=== PATIENT | female | born 1950 | race African-American/Black ===

== ENCOUNTER 2017-11-28 08:00 | Inpatient (IN) | payer OTHER, BC ==
[2017-11-21 10:00] VITALS: BMI 38.7
[2017-11-28] MEDS ORDERED: DEXAMETHASONE SOD PHOSPHATE/PF 10 MG/ML SDV ONE (11:00)
[2017-11-28] MEDS ORDERED: MIDAZOLAM HCL 2 MG/2 ML SINGLE DOSE VIAL ONE ×3 (11:01→13:02)
[2017-11-28] MEDS ORDERED: BUPIVACAINE HCL/PF (5 MG/ML) 30 ML VIAL IJ ONE (11:01)
[2017-11-28] MEDS ORDERED: BUPIVACAINE LIPOSOME/PF (EXPAREL) 266 MG/20 ML VIAL ONE (11:01)
[2017-11-28] MEDS ORDERED: CEFAZOLIN 2 GM/D5W 2 GM/50 ML ML IVPB ONE (11:50)
[2017-11-28] MEDS ORDERED: VANCOMYCIN 1 GRAM (PRE-DOCKED) 1,000 MG/250 ML BAG IVPB ONE (11:50)
--- NOTE | 2017-11-28 11:50 | HP ---
History & Physical Update - History History: No Change - Physical Physical: No Change - Assessment Assessment: No Change - Plan Plan: No Change (full H&P from PMD on 11/13/2017)
[2017-11-28] MEDS ORDERED: TRANEXAMIC ACID 1000 MG/10 ML VIAL IVPUSH ONE (11:51)
[2017-11-28] MEDS ORDERED: TRANEXAMIC ACID 1000 MG/10 ML VIAL ONE (12:55)
[2017-11-28] MEDS ORDERED: VANCOMYCIN 1,000 MG VIAL (RESTRICTED TO ID ONLY) ONE (12:55)
[2017-11-28] MEDS ORDERED: ceFAZolin SODIUM 1 GM VIAL ONE (12:55)
[2017-11-28] MEDS ORDERED: PROPOFOL 20 ML ONE ×2 (13:02→14:39)
[2017-11-28] MEDS ORDERED: ONDANSETRON 4 MG/2 ML VIAL IVPUSH PRN ×2 (14:46→15:12)
[2017-11-28] MEDS ORDERED: MAG HYDROX/AL HYDROX/SIMETH 30 ML UNIT-DOSE CUP PO PRN (15:12)
[2017-11-28] MEDS ORDERED: MAGNESIUM HYDROX 2400MG/30ML ORAL SUSPENSION 30 ML CUP PO PRN (15:12)
[2017-11-28] MEDS ORDERED: LACTATED RINGERS SOLUTION 1,000 ML IV SCH (15:15)
--- NOTE | 2017-11-28 15:21 | OP ---
Operative Note - Note: Operative Date: 11/28/17 Pre-Operative Diagnosis: Left knee DJD Operation: Left total knee replacement Implants: [employer]. Cemented. Femur - 5. Tibia - 6. Poly - 9mm, PS. Patella - 27mm Surgeon: Eliel Perrin Bundle Helper: Bienvenido Perrin Anesthesiologist/CONSTRUCTION OR LEAK GANG LABORER: Jamal Kowaslki Anesthesia: Spinal Specimens Removed: Bone, soft tissue Estimated Blood Loss (mls): 100 Drains & Tubes with Location: 1 x deep HemoVac Operative Report Dictated: Yes
[2017-11-28] MEDS ORDERED: BENZOIN/ALOE VERA/STORAX/TOLU 58 ML BOTTLE ONE (15:23)
--- NOTE | 2017-11-28 15:23 | PN ---
Progress Note (short form) - Note Progress Note: 67F s/p L TKA POD #0. -Pain control: per anaesthesia team. -DVT PPx: - Chemical: ASA 81mg PO BID x 6 weeks. - Mechanical: TYESHA's, SCD's. -Incentive spirometry. -PT/OT/Rehab, OOB. -WBAT LLE. -f/u post-op TOV. -f/u drain output. -f/u AM labs. -Discharge planning. -Care per medical hospitalist team. -Will follow. Eliel Perrin MD (Orthopaedic Surgery).
--- NOTE | 2017-11-28 16:16 | OP ---
DATE OF OPERATION: 11/28/2017 SURGEON: Eliel Perrin MD DIRECTOR OF OPTIMIZATION: Bienvenido Perrin MD PREOPERATIVE DIAGNOSIS: Tricompartment osteoarthritis, left knee. POSTOPERATIVE DIAGNOSIS: Tricompartment osteoarthritis, left knee. OPERATION PERFORMED: Left posterior stabilized total knee arthroplasty, cemented (Collison), subvastus approach. ANESTHESIA: Spinal anesthesia with conscious sedation and peripheral block. ANTIBIOTICS GIVEN: 2 g Kefzol, 1 g vancomycin preop and 1 g Kefzol given at the time of the release of the tourniquet. TOURNIQUET TIME: Approximately 90 minutes. PROCEDURE: The patient was correctly identified and brought to the operating room. The left lower extremity was prepped and free draped in a routine manner with Betadine scrub, wiped off with alcohol and DuraPrep applied. A free drape to the left lower extremity performed. A midline incision was utilized. The dissection was taken through the subcutaneous tissue to the prepatellar region. The plane on the medial side was lifted. A medial incision was made into the proximal tibial bone bed right up to the angle of the attachment point of vastus medialis into the retinacular tissue to the medial pole of the patella. The epimysium was removed off the muscle completely so that the actual exposure of the vastus medialis was subfascial. This dissection was taken down posteriorly right to the linea aspera. Following this, the interval between the vastus medialis and the medial parapatellar region was opened. This gave easy entry for a blunt Hohmann under the vastus lateralis to slide the patella laterally. Once this had been performed, the patella was capsized as best we could. The plane of subcutaneous bed just alongside the more medial bone bed of the femur was opened. This enabled the complete freeing of the vastus and complete retraction laterally, that is of the quadriceps mechanism. The patella was cut with the patella at 90 degrees to the coronal plane. The cut was made from medial to lateral and in line with Whitesides line that is from patella ligament to quadriceps tendon. Once this had been performed, the tibia was exposed, sharp Hohmann placed laterally, 1+ posteriorly and 1+ medially. An extramedullary jig alignment cut from the eminence of the tibia right to the middle of the talus along the iliac crest. Once this being performed, the measurement of the tibia was for a size 6 and an appropriate hole was made in the tibia including the fine cuttings performed at that point. Once this had been achieved, the femur was cut in 3 degrees of external rotation, 4 degrees of valgus; 10 mm of the distal end of the femur was resected. The cuts were made with the approximately jig system. Once this being completed, the femoral cuts were well maintained and normal appearing. The trial components were inserted. This was a size 5 femur, size 6 tibial tray, size large polyethylene patellar button, 9 polyethylene liner with a 27 mm patellar button being utilized. Routine lug holes were made for the patella itself. Tracking was excellent. Realignment of the limb was perfect and external rotation was normal. Once this had been satisfied, the tissues were thoroughly lavaged with pulse lavage and cementing using one-stage tibia, femur and then patella. All extraneous cement was removed. Patella tracking was normal with a 9 mm trial polyethylene liner and then the definitive prosthesis and implant inserted with no difficulty. The polyethylene measured a size 9 for posterior stabilized implant. The wounds were thoroughly lavaged. The tourniquet was released. Antibiotics were given at the time of release. This allowed us to diathermize some of the bleeding vessels, but posteriorly there was still moderately significant bleeding occurring which was unstoppable, and for that reason we placed a drain and closed the tissues as follows: Quadriceps muscle and fascia 1 Vicryl, subcuticular 2-0 Vicryl, skin 3-0 Monocryl with Steri-Strips. DRAINS: 1/8 inch Hemovac x1. No complications. The operation went well. MD TIFFANIE Live/[id number]
[2017-11-28] MEDS ORDERED: ACETAMINOPHEN 325 MG TABLET (FP) ONE (17:01)
[2017-11-28] MEDS ORDERED: ONDANSETRON 4 MG/2 ML VIAL ONE (17:01)
[2017-11-28] MEDS ORDERED: oxyCODONE HCL 5 MG TABLET ONE (17:22)
[2017-11-28] MEDS ORDERED: oxyCODONE HCL 5 MG TABLET PO ONE (17:30)
[2017-11-28] MEDS ORDERED: KETOROLAC TROMETHAMINE 30 MG/1 ML VIAL IVPUSH ONE (18:05)
[2017-11-28] MEDS ORDERED: KETOROLAC TROMETHAMINE 30 MG/1 ML VIAL ONE (18:09)
[2017-11-28] MEDS: ASPIRIN 81 MG CHEWABLE TABLETS PO SCH (22:46)
[2017-11-28] MEDS: ACETAMINOPHEN 325 MG TABLET (FP) PO SCH (22:46)
[2017-11-28] MEDS: CARVEDILOL 12.5 MG TABLET (FP) PO SCH (22:46)
[2017-11-28] MEDS: oxyCODONE HCL 10 MG SUSTAINED ACTING TABLET PO SCH (22:46)
[2017-11-28] MEDS: SENNOSIDES/DOCUSATE COMBO (SENNA PLUS) TABLET (UD) PO SCH (22:47)
[2017-11-28] MEDS: CEFAZOLIN 2 GM/D5W 2 GM/50 ML ML IVPB SCH (22:47)
[2017-11-28] MEDS: oxyCODONE HCL 5 MG TABLET PO PRN (22:54)
[2017-11-29] MEDS ORDERED: VANCOMYCIN 1 GRAM (PRE-DOCKED) 1,000 MG/250 ML BAG IVPB ONE (01:00)
[2017-11-29] MEDS: CEFAZOLIN 2 GM/D5W 2 GM/50 ML ML IVPB SCH (03:17)
[2017-11-29] MEDS: ACETAMINOPHEN 325 MG TABLET (FP) PO SCH ×5 (03:18→20:52)
[2017-11-29] MEDS: oxyCODONE HCL 5 MG TABLET PO PRN ×4 (06:59→20:52)
[2017-11-29 08:22] LABS: HEMATOCRIT 27.5 % (32.4-45.2); HEMOGLOBIN 8.5 GM/dl (10.7-15.3); MCH 25.4 pg (25.7-33.7); MEAN CELL VOLUME 81.9 fl (80-96); MEAN PLT VOLUME 7.7 fl (7.5-11.1); PLATELET COUNT 291 K/MM3 (134-434); RBC 3.35 M/mm3 (3.60-5.2); RDW 14.9 % (11.6-15.6)
[2017-11-29 08:35] LABS: ANION GAP 5 (8-16); BLOOD UREA NITROGEN 21 mg/dl (7-18); CALCIUM 8.6 mg/dl (8.4-10.2); CHLORIDE 103 mmol/L (98-107); CO2 28 mmol/L (22-28); CREATININE 1.2 mg/dl (0.6-1.3); GLUCOSE,RANDOM 109 mg/dl (74-106); POTASSIUM 4.3 mmol/L (3.5-5.1); SODIUM 136 mmol/L (136-145)
[2017-11-29] MEDS: HYDROCHLOROTHIAZIDE 25 MG TABLET (FP) PO SCH (10:26)
[2017-11-29] MEDS: CARVEDILOL 12.5 MG TABLET (FP) PO SCH ×2 (10:27→21:20)
[2017-11-29] MEDS: ASPIRIN 81 MG CHEWABLE TABLETS PO SCH ×2 (10:27→21:20)
[2017-11-29] MEDS: oxyCODONE HCL 10 MG SUSTAINED ACTING TABLET PO SCH ×2 (10:28→21:20)
[2017-11-29] MEDS: SENNOSIDES/DOCUSATE COMBO (SENNA PLUS) TABLET (UD) PO SCH ×2 (10:28→21:20)
[2017-11-29] MEDS: PANTOPRAZOLE 40 MG TABLET (FP) PO SCH (10:28)
--- NOTE | 2017-11-29 10:47 | PN ---
Progress Note (short form) - Note Progress Note: 67F POD1 L TKR under spinal with peripheral blocks for post operative pain relief. Pt states that pain is well controlled, reports no anesthetic complications. AVSS. Motor and sensory function intact in bilateral lower extremities. Continue current regimen.
--- NOTE | 2017-11-29 12:44 | CONSULT ---
Consultation: REQUESTING PROVIDER: Dr villarreal CONSULT REQUEST: We have been asked to medically evaluate this patient for medical management. HISTORY OF PRESENT ILLNESS: Patient is a 67 y/o female with a past medical history of OA, HTN, obesity. Patient is s/p left total knee replacement, Dr Villarreal Post op day 1. REVIEW OF SYSTEMS: CONSTITUTIONAL: Absent: fever, chills, diaphoresis, generalized weakness, malaise, loss of appetite, weight change HEENT: Absent: rhinorrhea, nasal congestion, throat pain, throat swelling, difficulty swallowing, mouth swelling, ear pain, eye pain, visual changes CARDIOVASCULAR: Absent: chest pain, syncope, palpitations, irregular heart rate, lightheadedness , peripheral edema RESPIRATORY: Absent: cough, shortness of breath, dyspnea with exertion, orthopnea, wheezing, stridor, hemoptysis GASTROINTESTINAL: Absent: abdominal pain, abdominal distension, nausea, vomiting, diarrhea, constipation, melena, hematochezia GENITOURINARY: Absent: dysuria, frequency, urgency, hesitancy, hematuria, flank pain, genital pain MUSCULOSKELETAL: Present: left knee Absent: myalgia, arthralgia, joint swelling, back pain, neck pain SKIN: Absent: rash, itching, pallor HEMATOLOGIC/IMMUNOLOGIC: Absent: easy bleeding, easy bruising, lymphadenopathy, frequent infections ENDOCRINE: Absent: unexplained weight gain, unexplained weight loss, heat intolerance, cold intolerance NEUROLOGIC: Absent: headache, focal weakness or paresthesias, dizziness, unsteady gait, seizure, mental status changes, bladder or bowel incontinence PSYCHIATRIC: Absent: anxiety, depression, suicidal or homicidal ideation, hallucinations. PHYSICAL EXAMINATION Vital Signs - 24 hr 11/28/17 11/28/17 11/28/17 16:07 16:12 16:17 Temperature 98.1 F Pulse Rate 78 57 L 58 L Respiratory 16 16 16 Rate Blood Pressure 131/54 156/61 152/66 O2 Sat by Pulse 99 100 100 Oximetry (%) 11/28/17 11/28/17 11/28/17 16:22 16:36 16:45 Temperature Pulse Rate 62 54 L 56 L Respiratory 16 16 16 Rate Blood Pressure 143/73 139/80 156/75 O2 Sat by Pulse 100 100 100 Oximetry (%) 11/28/17 11/28/17 11/28/17 17:00 17:15 17:30 Temperature Pulse Rate 60 64 64 Respiratory 16 16 16 Rate Blood Pressure 156/75 173/86 196/97 O2 Sat by Pulse 100 100 100 Oximetry (%) 11/28/17 11/28/17 11/28/17 17:45 18:00 18:10 Temperature Pulse Rate 66 61 64 Respiratory 18 18 18 Rate Blood Pressure 194/94 190/88 148/93 O2 Sat by Pulse 100 100 100 Oximetry (%) 11/28/17 11/28/17 11/28/17 18:20 18:30 19:00 Temperature 98.1 F 98.8 F Pulse Rate 60 64 62 Respiratory 18 18 18 Rate Blood Pressure 162/91 140/88 179/73 O2 Sat by Pulse 100 100 99 Oximetry (%) 11/28/17 11/29/17 11/29/17 22:40 06:00 10:05 Temperature 98.5 F 99.1 F 97.8 F Pulse Rate 70 72 70 Respiratory 19 20 18 Rate Blood Pressure 160/73 124/63 138/78 O2 Sat by Pulse 98 100 Oximetry (%) GENERAL: Awake, alert, and fully oriented, in no acute distress. HEAD: Normal with no signs of trauma. EYES: Pupils equal, round and reactive to light, extraocular movements intact, sclera anicteric, conjunctiva clear. No lid lag. EARS, NOSE, THROAT: Ears normal, nares patent, oropharynx clear without exudates. Moist mucous membranes. NECK: Normal range of motion, supple without lymphadenopathy, JVD, or masses. LUNGS: Breath sounds equal, clear to auscultation bilaterally. No wheezes, and no crackles. No accessory muscle use. HEART: Regular rate and rhythm, normal S1 and S2 without murmur, rub or gallop. ABDOMEN: Soft, nontender, not distended, normoactive bowel sounds, no guarding, no rebound, no masses. No hepatomegaly or splenomegaly. MUSCULOSKELETAL: Normal range of motion at all joints. No bony deformities or tenderness. No CVA tenderness. UPPER EXTREMITIES: 2+ pulses, warm, well-perfused. No cyanosis. No clubbing. Cap refill <2 seconds. No peripheral edema. LOWER EXTREMITIES: 2+ pulses, warm, well-perfused. No calf tenderness. No peripheral edema, scd, jair, hemovac scant sangenous drainage noted NEUROLOGICAL: Cranial nerves II-XII intact. Normal speech. Normal gait. PSYCHIATRIC: Cooperative. Good eye contact. Appropriate mood and affect. SKIN: Warm, dry, normal turgor, no rashes or lesions noted. Laboratory Results - last 24 hr 11/29/17 11/29/17 07:47 07:47 WBC 12.0 H RBC 3.35 L Hgb 8.5 L Hct 27.5 L MCV 81.9 MCH 25.4 L MCHC 31.0 L RDW 14.9 Plt Count 291 MPV 7.7 Sodium 136 Potassium 4.3 Chloride 103 Carbon Dioxide 28 Anion Gap 5 L BUN 21 H Creatinine 1.2 Random Glucose 109 H Calcium 8.6 Active Medications Generic Name Dose Route Start Last Admin Trade Name Freq PRN Reason Stop Dose Admin Acetaminophen 650 mg 11/28/17 15:00 11/29/17 09:13 Tylenol - PO 12/01/17 14:59 650 mg Q6H SASHA Administration Al Hydroxide/Mg Hydroxide 30 ml 11/28/17 15:12 Mylanta Oral Suspension - PO Q4H PRN DYSPEPSIA Aspirin 81 mg 11/28/17 22:00 11/29/17 10:27 Asa - PO 81 mg BID SASHA Administration Carvedilol 12.5 mg 11/28/17 22:00 11/29/17 10:27 Coreg - PO 12.5 mg BID SASHA Administration Hydrochlorothiazide 25 mg 11/29/17 10:00 11/29/17 10:26 Hctz - PO 25 mg DAILY SASHA Administration Lactated Ringer's 1,000 mls @ 125 mls/hr 11/28/17 15:00 Lactated Ringers Solution IV ASDIR SASHA Magnesium Hydroxide 30 ml 11/28/17 15:12 Milk Of Magnesia - PO PRN PRN CONSTIPATION Ondansetron HCl 4 mg 11/28/17 15:12 Zofran Injection IVPUSH Q6H PRN NAUSEA Oxycodone HCl 5 mg 11/28/17 14:46 Roxicodone - PO Q3H PRN PAIN LEVEL 1-5 Oxycodone HCl 10 mg 11/28/17 14:46 11/29/17 06:59 Roxicodone - PO 10 mg Q3H PRN Administration PAIN LEVEL 6-10 Oxycodone HCl 10 mg 11/28/17 22:00 11/29/17 10:28 Oxycontin - PO 12/01/17 14:47 10 mg BID SASHA Administration Pantoprazole Sodium 40 mg 11/29/17 10:00 11/29/17 10:28 Protonix - PO 40 mg DAILY SASHA Administration Senna/Docusate Sodium 1 tablet 11/28/17 22:00 11/29/17 10:28 Pericolace - PO 1 tablet BID SASHA Administration ASSESSMENT/PLAN: 1) MS left total knee replacement POD #1 - prn pain medication - physical therapy as per orthopedist - hgb 8.5, may be dilutional close monitoring of I/O from hemovac, repeat hgb in AM 2) cardiovascular hypertension - continue coreg and hctz, b/p at goal Dispo: We will continue to follow the patient. Thank you for this consultative opportunity. Visit type - Emergency Visit Emergency Visit: No - New Patient This patient is new to me today: Yes Date on this admission: 11/29/17 - Critical Care Critical Care patient: No
[2017-11-29] MEDS: LACTATED RINGERS SOLUTION 1,000 ML IV SCH (19:25)
[2017-11-30] MEDS: ACETAMINOPHEN 325 MG TABLET (FP) PO SCH ×5 (04:53→21:29)
[2017-11-30] MEDS: oxyCODONE HCL 5 MG TABLET PO PRN ×3 (05:05→18:07)
[2017-11-30 08:33] LABS: HEMATOCRIT 22.7 % (32.4-45.2); HEMOGLOBIN 7.5 GM/dl (10.7-15.3); MCH 26.8 pg (25.7-33.7); MCHC 32.9 g/dl (32.0-36.0); MEAN CELL VOLUME 81.3 fl (80-96); MEAN PLT VOLUME 7.8 fl (7.5-11.1); PLATELET COUNT 214 K/MM3 (134-434); RDW 14.6 % (11.6-15.6); WHITE BLOOD COUNT 12.9 K/mm3 (4.0-10.8)
[2017-11-30] MEDS: CARVEDILOL 12.5 MG TABLET (FP) PO SCH ×2 (10:04→21:29)
[2017-11-30] MEDS: ASPIRIN 81 MG CHEWABLE TABLETS PO SCH ×2 (10:04→21:28)
[2017-11-30] MEDS: HYDROCHLOROTHIAZIDE 25 MG TABLET (FP) PO SCH (10:05)
[2017-11-30] MEDS: PANTOPRAZOLE 40 MG TABLET (FP) PO SCH (10:05)
[2017-11-30] MEDS: oxyCODONE HCL 10 MG SUSTAINED ACTING TABLET PO SCH ×2 (10:05→21:28)
[2017-11-30] MEDS: SENNOSIDES/DOCUSATE COMBO (SENNA PLUS) TABLET (UD) PO SCH ×2 (10:06→21:28)
--- NOTE | 2017-11-30 14:36 | PN ---
Physical Exam: SUBJECTIVE: Patient seen and examined, reports feeling well, sitting in a bedside chair, reports minimal pain to left lower extremity, denies any paresthesia to the extremity. OBJECTIVE: Patient is a 67 y/o female with a past medical history of OA, iron deficiency anemia, HTN, obesity. patient is s/p left TKR, Dr Perrin Vital Signs Period Temp Pulse Resp BP Sys/Armstrong Pulse Ox Last 24 Hr 98.9 F-100.0 F 77-96 19-20 118-148/48-66 94-96 GENERAL: The patient is awake, alert, and fully oriented, in no acute distress. HEAD: Normal with no signs of trauma. EYES: PERRL, extraocular movements intact, sclera anicteric, conjunctiva clear. No ptosis. ENT: Ears normal, nares patent, oropharynx clear without exudates, moist mucous membranes. NECK: Trachea midline, full range of motion, supple. LUNGS: Breath sounds equal, clear to auscultation bilaterally, no wheezes, no crackles, no accessory muscle use. HEART: Regular rate and rhythm, S1, S2 without murmur, rub or gallop. ABDOMEN: Soft, nontender, nondistended, normoactive bowel sounds, no guarding, no rebound, no hepatosplenomegaly, no masses. EXTREMITIES: 2+ pulses, warm, well-perfused, no edema. LEFT LOWER EXTREMITY: hemovac removed, scant sang drainage noted, drain is intact, less than second capillary refill, +3 pedal pulse NEUROLOGICAL: Cranial nerves II through XII grossly intact. Normal speech, gait not observed. PSYCH: Normal mood, normal affect. SKIN: Warm, dry, normal turgor, no rashes or lesions noted Laboratory Results - last 24 hr 11/30/17 11/30/17 07:00 13:05 WBC 12.9 H RBC 2.80 L Hgb 7.5 L D Hct 22.7 L D MCV 81.3 MCH 26.8 MCHC 32.9 RDW 14.6 Plt Count 214 MPV 7.8 Crossmatch See Detail Active Medications Generic Name Dose Route Start Last Admin Trade Name Freq PRN Reason Stop Dose Admin Acetaminophen 650 mg 11/28/17 15:00 11/30/17 14:20 Tylenol - PO 12/01/17 14:59 650 mg Q6H SASHA Administration Al Hydroxide/Mg Hydroxide 30 ml 11/28/17 15:12 Mylanta Oral Suspension - PO Q4H PRN DYSPEPSIA Aspirin 81 mg 11/28/17 22:00 11/30/17 10:04 Asa - PO 81 mg BID SASHA Administration Carvedilol 12.5 mg 11/28/17 22:00 11/30/17 10:04 Coreg - PO 12.5 mg BID SASHA Administration Hydrochlorothiazide 25 mg 11/29/17 10:00 11/30/17 10:05 Hctz - PO 25 mg DAILY SASHA Administration Lactated Ringer's 1,000 mls @ 125 mls/hr 11/28/17 15:00 11/29/17 19:25 Lactated Ringers Solution IV Not Given ASDIR SASHA Magnesium Hydroxide 30 ml 11/28/17 15:12 Milk Of Magnesia - PO PRN PRN CONSTIPATION Ondansetron HCl 4 mg 11/28/17 15:12 Zofran Injection IVPUSH Q6H PRN NAUSEA Oxycodone HCl 5 mg 11/28/17 14:46 11/30/17 10:05 Roxicodone - PO 5 mg Q3H PRN Administration PAIN LEVEL 1-5 Oxycodone HCl 10 mg 11/28/17 14:46 11/29/17 20:52 Roxicodone - PO 10 mg Q3H PRN Administration PAIN LEVEL 6-10 Oxycodone HCl 10 mg 11/28/17 22:00 11/30/17 10:05 Oxycontin - PO 12/01/17 14:47 10 mg BID SASHA Administration Pantoprazole Sodium 40 mg 11/29/17 10:00 11/30/17 10:05 Protonix - PO 40 mg DAILY SASHA Administration Senna/Docusate Sodium 1 tablet 11/28/17 22:00 11/30/17 10:06 Pericolace - PO 1 tablet BID SASHA Administration ASSESSMENT/PLAN: 1) MS left total knee replacement POD #2 - prn pain medication - physical therapy as per orthopedist - hgb 7.5, baseline 9, discussed with ortho Dr Perrin, recommend 2 units of prbc , repeat hgb in AM 2) cardiovascular hypertension - continue coreg and hctz, b/p at goal 3) hem/onc iron deficency anemia - pt reports known history, not taking iron supplements, iron studies sent - recommend iron 325mg bid Dispo: We will continue to follow the patient. Thank you for this consultative opportunity. Visit type - Emergency Visit Emergency Visit: Yes ED Registration Date: 11/28/17 Care time: The patient presented to the Emergency Department on the above date and was hospitalized for further evaluation of their emergent condition. - New Patient This patient is new to me today: No - Critical Care Critical Care patient: No - Discharge Referral Referred to [facility] Med P.C.: No
[2017-11-30] MEDS: LACTATED RINGERS SOLUTION 1,000 ML IV SCH (15:49)
[2017-11-30] MEDS: FERROUS SO4 325 MG TABLET (FP) PO SCH (21:27)
[2017-11-30 23:33] LABS: BASO % 0.2 % (0-2.0); EOS % 0.6 % (0-4.5); HEMATOCRIT 24.7 % (32.4-45.2); HEMOGLOBIN 8.1 GM/dl (10.7-15.3); LYMPH % 8.7 % (8-40); MCH 26.6 pg (25.7-33.7); MCHC 32.8 g/dl (32.0-36.0); MEAN CELL VOLUME 81.3 fl (80-96); MONO % 11.6 % (3.8-10.2); NEUT % 78.9 % (42.8-82.8); PLATELET COUNT 233 K/MM3 (134-434); RBC 3.04 M/mm3 (3.60-5.2); RDW 14.4 % (11.6-15.6); WHITE BLOOD COUNT 13.6 K/mm3 (4.0-10.8)
[2017-12-01] MEDS: oxyCODONE HCL 5 MG TABLET PO PRN ×2 (01:21→09:40)
[2017-12-01] MEDS: ACETAMINOPHEN 325 MG TABLET (FP) PO SCH ×2 (02:09→09:41)
[2017-12-01 08:18] LABS: BASO % 0.1 % (0-2.0); EOS % 1.4 % (0-4.5); HEMOGLOBIN 8.4 GM/dl (10.7-15.3); LYMPH % 9.5 % (8-40); MCHC 32.5 g/dl (32.0-36.0); MEAN PLT VOLUME 7.7 fl (7.5-11.1); MONO % 12.4 % (3.8-10.2); NEUT % 76.6 % (42.8-82.8); PLATELET COUNT 212 K/MM3 (134-434); RBC 3.13 M/mm3 (3.60-5.2); RDW 14.9 % (11.6-15.6); WHITE BLOOD COUNT 12.3 K/mm3 (4.0-10.8)
[2017-12-01] MEDS: SENNOSIDES/DOCUSATE COMBO (SENNA PLUS) TABLET (UD) PO SCH ×2 (09:40→22:13)
[2017-12-01] MEDS: HYDROCHLOROTHIAZIDE 25 MG TABLET (FP) PO SCH (09:40)
[2017-12-01] MEDS: ASPIRIN 81 MG CHEWABLE TABLETS PO SCH ×2 (09:40→22:13)
[2017-12-01] MEDS: CARVEDILOL 12.5 MG TABLET (FP) PO SCH ×2 (09:40→22:13)
[2017-12-01] MEDS: PANTOPRAZOLE 40 MG TABLET (FP) PO SCH (09:40)
[2017-12-01] MEDS: FERROUS SO4 325 MG TABLET (FP) PO SCH ×2 (09:40→22:13)
[2017-12-01] MEDS: oxyCODONE HCL 10 MG SUSTAINED ACTING TABLET PO SCH (09:41)
--- NOTE | 2017-12-01 12:59 | PN ---
Physical Exam: SUBJECTIVE: Patient seen and examined oob to chair. Does not complain of pain. After PT today, there was some bleeding through the surgical dressing. Nurses expressed some dark red blood, no obvious pus. OBJECTIVE: Vital Signs Period Temp Pulse Resp BP Sys/Armstrong Pulse Ox Last 24 Hr 98.9 F-100.5 F 76-95 18-20 118-141/48-73 94-95 GENERAL: The patient is awake, alert, and fully oriented, in no acute distress. LUNGS: Breath sounds equal, clear to auscultation bilaterally, no wheezes, no crackles, no accessory muscle use. HEART: Regular rate and rhythm, S1, S2 RLE: Surgical left knee dressing in place, small amount of strike through; knee is swollen, no erythema, no warmth NEUROLOGICAL: Cranial nerves II through XII grossly intact. Normal speech, gait not observed. PSYCH: Normal mood, normal affect. SKIN: Warm, dry, normal turgor Laboratory Results - last 24 hr 11/30/17 11/30/17 11/30/17 13:05 13:54 13:54 WBC RBC Hgb Hct MCV MCH MCHC RDW Plt Count MPV Neutrophils % Lymphocytes % Monocytes % Eosinophils % Basophils % Retic Count 1.86 H Ferritin 63.731 Blood Type O POSITIVE Antibody Screen Negative Crossmatch See Detail 11/30/17 11/30/17 12/01/17 13:54 23:10 08:00 WBC 13.6 H 12.3 H RBC 3.04 L 3.13 L Hgb 8.1 L 8.4 L Hct 24.7 L 26.0 L MCV 81.3 83.0 MCH 26.6 27.0 MCHC 32.8 32.5 RDW 14.4 14.9 Plt Count 233 212 MPV 8.0 7.7 Neutrophils % 78.9 76.6 Lymphocytes % 8.7 9.5 Monocytes % 11.6 H 12.4 H Eosinophils % 0.6 1.4 Basophils % 0.2 0.1 Retic Count Ferritin Blood Type O POSITIVE Antibody Screen Crossmatch Active Medications Generic Name Dose Route Start Last Admin Trade Name Freq PRN Reason Stop Dose Admin Acetaminophen 650 mg 11/28/17 15:00 12/01/17 09:41 Tylenol - PO 12/01/17 14:59 650 mg Q6H SASHA Administration Al Hydroxide/Mg Hydroxide 30 ml 11/28/17 15:12 Mylanta Oral Suspension - PO Q4H PRN DYSPEPSIA Aspirin 81 mg 11/28/17 22:00 12/01/17 09:40 Asa - PO 81 mg BID SASHA Administration Carvedilol 12.5 mg 11/28/17 22:00 12/01/17 09:40 Coreg - PO 12.5 mg BID SASHA Administration Ferrous Sulfate 325 mg 11/30/17 22:00 12/01/17 09:40 Feosol - PO 325 mg BID SASHA Administration Hydrochlorothiazide 25 mg 11/29/17 10:00 12/01/17 09:40 Hctz - PO 25 mg DAILY SASHA Administration Lactated Ringer's 1,000 mls @ 125 mls/hr 11/28/17 15:00 11/30/17 15:49 Lactated Ringers Solution IV Not Given ASDIR SASHA Magnesium Hydroxide 30 ml 11/28/17 15:12 Milk Of Magnesia - PO PRN PRN CONSTIPATION Ondansetron HCl 4 mg 11/28/17 15:12 Zofran Injection IVPUSH Q6H PRN NAUSEA Oxycodone HCl 5 mg 11/28/17 14:46 11/30/17 10:05 Roxicodone - PO 5 mg Q3H PRN Administration PAIN LEVEL 1-5 Oxycodone HCl 10 mg 11/28/17 14:46 12/01/17 09:40 Roxicodone - PO 10 mg Q3H PRN Administration PAIN LEVEL 6-10 Oxycodone HCl 10 mg 11/28/17 22:00 12/01/17 09:41 Oxycontin - PO 12/01/17 14:47 10 mg BID SASHA Administration Pantoprazole Sodium 40 mg 11/29/17 10:00 12/01/17 09:40 Protonix - PO 40 mg DAILY SASHA Administration Senna/Docusate Sodium 1 tablet 11/28/17 22:00 12/01/17 09:40 Pericolace - PO 1 tablet BID SASHA Administration ASSESSMENT/PLAN: Patient is a 67 y/o female with a PMH significant for HTN, obesity, OA, s/p right TKR x 3 years, now s/p left TKR, POD #3. Left total knee replacement POD #3 Acute blood loss anemia secondary to surgery --knee is swollen, dark blood expressed from underneath dressing, there is no drain --multiple calls placed to surgeon by staff and supervisors; advised surgeons are in [facility]; no response from emergency number; no covering surgeon --CT ordered to r/o abscess/collection --mildly elevated WBC, low grade fever; start Vanc, Zosyn --ID consult requested --transfused 2U overnight 11/30-->12/01 with modest response 7.5-->8.4 Hypertension --BP stable --continue carvedilol, HCTZ FEN Fluids: PO intake adequate Electrolytes: replete as indicated Nutrition: regular diet DVT prophylaxis: SCDs, oob, ambulation Physical therapy Dispo: continues to require inpatient care. Full code. Visit type - Emergency Visit Emergency Visit: No - New Patient This patient is new to me today: Yes Date on this admission: 12/02/17 - Critical Care Critical Care patient: No
[2017-12-01] MEDS ORDERED: VANCOMYCIN 1,500 MG in DEXTROSE 5%-WATER - 250 ML IVPB ONE (13:40)
[2017-12-01] MEDS ORDERED: PIPERACILLIN/TAZOB 3.375 GM 3.375 GM in DEXTROSE 5%-WATER - 50 ML IVPB SCH (13:45)
[2017-12-01 13:50] LABS: HEMATOCRIT 26.6 % (32.4-45.2); HEMOGLOBIN 8.7 GM/dl (10.7-15.3); MCHC 32.9 g/dl (32.0-36.0); MEAN CELL VOLUME 82.3 fl (80-96); MEAN PLT VOLUME 7.5 fl (7.5-11.1); PLATELET COUNT 228 K/MM3 (134-434); RBC 3.23 M/mm3 (3.60-5.2); RDW 14.7 % (11.6-15.6); WHITE BLOOD COUNT 12.9 K/mm3 (4.0-10.8)
[2017-12-01] MEDS ORDERED: FUROSEMIDE 40 MG/4 ML INJECTABLE VIAL IVPUSH ONE (14:18)
[2017-12-01] MEDS: VANCOMYCIN IVPB ONE ×2 (14:30→16:14)
[2017-12-01] MEDS: SODIUM CHLORIDE IVPB ONE ×2 (14:30→16:14)
[2017-12-01] MEDS ORDERED: PT OWN MED DRAWER 7, Y5N ONE (15:47)
[2017-12-01] MEDS: PIPERACILLIN/TAZOB 3.375 GM 3.375 GM/50 ML BAG IVPB SCH (19:16)
[2017-12-02] MEDS ORDERED: oxyCODONE HCL 5 MG TABLET PO PRN (01:02)
[2017-12-02] MEDS: oxyCODONE HCL 5 MG TABLET PO PRN ×5 (01:25→22:53)
[2017-12-02] MEDS: PIPERACILLIN/TAZOB 3.375 GM 3.375 GM/50 ML BAG IVPB SCH ×2 (01:26→09:35)
[2017-12-02 06:38] LABS: SERUM IRON SATURATION 2 % (15-55); TOTAL IRON BINDING CAPACITY 285 ug/dL (250-450); UIBC 278 ug/dL (118-369)
[2017-12-02 08:39] LABS: BASO % 0.5 % (0-2.0); EOS % 1.5 % (0-4.5); HEMATOCRIT 27.9 % (32.4-45.2); HEMOGLOBIN 9.2 GM/dl (10.7-15.3); LYMPH % 9.9 % (8-40); MCHC 33.1 g/dl (32.0-36.0); MEAN CELL VOLUME 81.8 fl (80-96); MEAN PLT VOLUME 8.9 fl (7.5-11.1); MONO % 10.9 % (3.8-10.2); NEUT % 77.2 % (42.8-82.8); PLATELET COUNT 257 K/MM3 (134-434); RBC 3.41 M/mm3 (3.60-5.2); RDW 14.9 % (11.6-15.6); WHITE BLOOD COUNT 10.5 K/mm3 (4.0-10.8)
[2017-12-02 08:50] LABS: ALBUMIN 2.8 g/dl (3.5-5.0); ALK PHOS 105 U/L (32-92); ANION GAP 10 (8-16); BLOOD UREA NITROGEN 26 mg/dl (7-18); CALCIUM 8.4 mg/dl (8.4-10.2); CHLORIDE 99 mmol/L (98-107); CO2 26 mmol/L (22-28); CREATININE 1.5 mg/dl (0.6-1.3); GLUCOSE,RANDOM 97 mg/dl (74-106); MAGNESIUM 1.9 mg/dL (1.8-2.4); POTASSIUM 3.8 mmol/L (3.5-5.1); SGOT/AST 27 U/L (10-42); SGPT/ALT 18 U/L (10-40); SODIUM 135 mmol/L (136-145); TOT PROT 6.4 g/dl (6.4-8.3)
[2017-12-02] MEDS: ACETAMINOPHEN 325 MG TABLET (FP) PO PRN ×3 (08:50→20:47)
[2017-12-02 08:52] LABS: URINE APPEARANCE Clear; URINE BILIRUBIN Negative (NEGATIVE); URINE GLUCOSE (UA) Negative (NEGATIVE); URINE KETONE Negative (NEGATIVE); URINE NITRITE Negative (NEGATIVE); URINE UROBILINOGEN 0.2 (0.2-1.0)
[2017-12-02 08:57] LABS: URINE COLOR YELLOW; URINE LEUK ESTERASE TRACE (NEGATIVE); URINE PROTEIN 2+ (NEGATIVE)
[2017-12-02] MEDS: ASPIRIN 81 MG CHEWABLE TABLETS PO SCH ×2 (09:33→22:02)
[2017-12-02] MEDS: CARVEDILOL 12.5 MG TABLET (FP) PO SCH ×2 (09:33→22:02)
[2017-12-02] MEDS: FERROUS SO4 325 MG TABLET (FP) PO SCH ×2 (09:33→22:02)
[2017-12-02] MEDS: HYDROCHLOROTHIAZIDE 25 MG TABLET (FP) PO SCH (09:34)
[2017-12-02] MEDS: SENNOSIDES/DOCUSATE COMBO (SENNA PLUS) TABLET (UD) PO SCH ×2 (09:34→22:02)
[2017-12-02] MEDS: PANTOPRAZOLE 40 MG TABLET (FP) PO SCH (09:34)
--- NOTE | 2017-12-02 11:08 | PN ---
Progress Note, Physician Chief Complaint: ID Asked to evaluate for post op fever 102 She denies chills or localizing findings - Current Medication List Current Medications: Active Medications Acetaminophen (Tylenol -) 650 mg PO Q6H PRN PRN Reason: FEVER Last Admin: 12/02/17 08:50 Dose: 650 mg Al Hydroxide/Mg Hydroxide (Mylanta Oral Suspension -) 30 ml PO Q4H PRN PRN Reason: DYSPEPSIA Aspirin (Asa -) 81 mg PO BID [facility] Last Admin: 12/02/17 09:33 Dose: 81 mg Carvedilol (Coreg -) 12.5 mg PO BID [facility] Last Admin: 12/02/17 09:33 Dose: 12.5 mg Ferrous Sulfate (Feosol -) 325 mg PO BID [facility] Last Admin: 12/02/17 09:33 Dose: 325 mg Hydrochlorothiazide (Hctz -) 25 mg PO DAILY [facility] Last Admin: 12/02/17 09:34 Dose: 25 mg Lactated Ringer's (Lactated Ringers Solution) 1,000 mls @ 125 mls/hr IV ASDIR [facility] Last Admin: 11/30/17 15:49 Dose: Not Given Piperacillin Sod/Tazobactam Sod (Zosyn 3.375gm Ivpb (Pre-Docked)) 3.375 gm in 50 mls @ 100 mls/hr IVPB Q8H-IV SASHA Magnesium Hydroxide (Milk Of Magnesia -) 30 ml PO PRN PRN PRN Reason: CONSTIPATION Ondansetron HCl (Zofran Injection) 4 mg IVPUSH Q6H PRN PRN Reason: NAUSEA Oxycodone HCl (Roxicodone -) 5 mg PO Q3H PRN PRN Reason: PAIN LEVEL 1-5 Oxycodone HCl (Roxicodone -) 10 mg PO Q3H PRN PRN Reason: PAIN LEVEL 6-10 Last Admin: 12/02/17 08:50 Dose: 10 mg Pantoprazole Sodium (Protonix -) 40 mg PO DAILY [facility] Last Admin: 12/02/17 09:34 Dose: 40 mg Senna/Docusate Sodium (Pericolace -) 1 tablet PO BID [facility] Last Admin: 12/02/17 09:34 Dose: 1 tablet - Objective Vital Signs: Vital Signs Temperature 99.3 F 12/02/17 10:00 Pulse Rate 80 12/02/17 10:00 Respiratory Rate 19 12/02/17 10:00 Blood Pressure 109/65 12/02/17 10:00 O2 Sat by Pulse Oximetry (%) 97 12/02/17 10:00 Constitutional: Yes: No Distress, Obese Neck: Yes: WNL, Supple. No: Lymphadenopathy Cardiovascular: Yes: S1, S2. No: Murmur Respiratory: Yes: WNL, Regular, CTA Bilaterally Gastrointestinal: Yes: Soft, Abdomen, Obese Extremities: Yes: Other (POst op dressing fresh blood noted on dressings) Labs: CBC, BMP 12/02/17 06:10 12/02/17 06:10 Problem List - Problems (1) Postoperative fever Code(s): R50.82 - POSTPROCEDURAL FEVER (2) Painful total knee replacement, right Code(s): T84.84XA - PAIN DUE TO INTERNAL ORTHOPEDIC PROSTH DEV/GRFT, INIT; Z96.651 - PRESENCE OF RIGHT ARTIFICIAL KNEE JOINT Assessment/Plan Microbiology Laboratory Tests 12/02/17 12/02/17 12/02/17 06:10 06:10 06:10 WBC 10.5 Hgb 9.2 L Hct 27.9 L Plt Count 257 Creat Clearance w eGFR 34.53 Ur Leukocyte Esterase Trace H Assessment no obvious signs of infection. I do not fell qualified to assess the CT knee findings but assume these are normal post changes Plan For now await cultures and observe NO antibiotic looks well Discussed with hospitalist Bill HENSON
[2017-12-02 11:23] LABS: AMORP URATES FEW /hpf (NONE SEEN); EPI CELLS FEW /HPF; URINE BACTERIA FEW /hpf (NEGATIVE); URINE RBC 0-3 /hpf (0-3)
[2017-12-02] MEDS ORDERED: SODIUM CHLORIDE 1,000 ML IV SCH (12:15)
--- NOTE | 2017-12-02 12:19 | CONS ---
DATE OF CONSULTATION: 12/02/2017 The patient is a 67-year-old female who I am asked to see status post right total knee replacement. The reason for consultation is postoperative fever. She has a history of hypertension and admits to seeing her primary doctor for preoperative clearance 3 weeks prior to surgery. She noted a sensation of chills when she went to her preoperative visit and stated that her primary doctor gave her a once a day antibiotic, which she took for 7 days. That said, she is unsure as to what, if any, diagnosis was made, and had been otherwise well going into her operation now. On November 28, she underwent a left total knee replacement, which according to the notes, seemed uneventful. Yesterday she spiked fever to 102 but denied any chills, shortness of breath, cough, abdominal pain, or urinary complaints. She is currently sitting in a chair and feels fine. She has no HIV risk factors and lives with her son. 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 Cultures of blood and urine have been obtained, and a CAT scan of the knee was ordered by the nurse practitioner. Past medical history includes hypertension. Current medications include Zofran, oxycodone, hydrochlorothiazide. ALLERGIES: None known. SOCIAL HISTORY: Nonsmoker. No history of EtOH abuse. FAMILY HISTORY: Noncontributory. REVIEW OF SYSTEMS: Respiratory: No cough, shortness of breath. Cardiac: No chest pain, palpitations, syncope. Gastrointestinal: No nausea, vomiting, abdominal pain, diarrhea. Genitourinary: No dysuria, hematuria, urinary frequency. PHYSICAL EXAMINATION: General: A heavyset woman, alert and in no acute distress, sitting in a chair. Vital Signs: Her temperature was 99.3, pulse 80, blood pressure 109/65, respirations 19. Neck: Supple without lymphadenopathy. Lungs: Clear to P&A. Heart: S1, S2. Regular rhythm without audible murmur. Abdomen: Soft, nontender. No guarding, rebound. Extremities: A postoperative dressing, which had areas saturated with fresh blood, swelling of the entire extremity noted. No localized tenderness. The white count was 10.5, hemoglobin 9.2, platelets of 257. The BUN was 26, creatinine 1.5. Urinalysis with trace leukocyte esterase. Two sets of blood cultures obtained December 02, currently pending, along with a urine culture. Chest x-ray not yet done. ASSESSMENT: A 67-year-old female, day 4 postoperative total knee replacement, postoperative fever, not unusual in this setting, and may be partially on the basis of a hematoma. She appears clinically stable, currently with no fever and a normal white count and in no distress. I would not give her any antibiotics at this time. I see an order for Zosyn written by the nurse practitioner, which I will discontinue. I am not sure what to make of the CAT scan findings, dated December 01, of her knee, so close to surgery. Most likely represents postoperative changes but will defer to Orthopedics in this regard. The case was discussed with the hospitalist. DANIEL YEH M.D. [id number]
--- NOTE | 2017-12-02 12:20 | PN ---
Physical Exam: SUBJECTIVE: Patient seen and examined Reports feel better,left knee pain controlled with pain meds,denies cp, sob, palpitations, cough, abdominal pain,N/V/D or urinary symptoms. OBJECTIVE: Vital Signs Period Temp Pulse Resp BP Sys/Armstrong Pulse Ox Last 24 Hr 97.9 F-102.4 F 77-92 18-20 109-147/65-69 95-98 GENERAL: The patient is awake, alert, and fully oriented, in no acute distress, OOB HEAD: Normal with no signs of trauma. EYES: PERRL, extraocular movements intact, sclera anicteric, conjunctiva clear. No ptosis. ENT: Ears normal, nares patent, oropharynx clear without exudates, moist mucous membranes. NECK: Trachea midline, full range of motion, supple. LUNGS: Breath sounds equal, clear to auscultation bilaterally, no wheezes, no crackles, no accessory muscle use. HEART: Regular rate and rhythm, S1, S2 with murmur,no rub or gallop. ABDOMEN: Soft, nontender, nondistended, normoactive bowel sounds, no guarding, no rebound, no hepatosplenomegaly, no masses. EXTREMITIES: 2+ pulses, warm, well-perfused, Lt knee swollen, serous drainage from the surgical site ( s/p LKR) NEUROLOGICAL: Cranial nerves II through XII grossly intact. Normal speech, gait not observed. PSYCH: Normal mood, normal affect. SKIN: Warm, dry, normal turgor, no rashes or lesions noted Laboratory Results - last 24 hr 11/30/17 12/01/17 12/02/17 Unknown 13:40 00:00 WBC 12.9 H RBC 3.23 L Hgb 8.7 L Hct 26.6 L MCV 82.3 MCH 27.0 MCHC 32.9 RDW 14.7 Plt Count 228 MPV 7.5 Neutrophils % Lymphocytes % Monocytes % Eosinophils % Basophils % Sodium Potassium Chloride Carbon Dioxide Anion Gap BUN Creatinine Creat Clearance w eGFR Random Glucose Lactic Acid 1.0 Calcium Magnesium Iron 7 L TIBC 285 Iron Saturation 2 L Total Bilirubin AST ALT Alkaline Phosphatase Total Protein Albumin Urine Color Urine Appearance Urine pH Ur Specific [place] Urine Protein Urine Glucose (UA) Urine Ketones Urine Blood Urine Nitrite Urine Bilirubin Urine Urobilinogen Ur Leukocyte Esterase Urine RBC Urine WBC Ur Epithelial Cells Amorphous Urates Urine Bacteria 12/02/17 12/02/17 12/02/17 06:10 06:10 06:10 WBC 10.5 RBC 3.41 L Hgb 9.2 L Hct 27.9 L MCV 81.8 MCH 27.0 MCHC 33.1 RDW 14.9 Plt Count 257 MPV 8.9 Neutrophils % 77.2 Lymphocytes % 9.9 Monocytes % 10.9 H Eosinophils % 1.5 Basophils % 0.5 Sodium 135 L Potassium 3.8 Chloride 99 Carbon Dioxide 26 Anion Gap 10 BUN 26 H D Creatinine 1.5 H D Creat Clearance w eGFR 34.53 Random Glucose 97 Lactic Acid Calcium 8.4 Magnesium 1.9 Iron TIBC Iron Saturation Total Bilirubin 1.0 AST 27 ALT 18 Alkaline Phosphatase 105 H Total Protein 6.4 Albumin 2.8 L Urine Color Yellow Urine Appearance Clear Urine pH 5.0 Ur Specific [place] 1.015 Urine Protein 2+ H Urine Glucose (UA) Negative Urine Ketones Negative Urine Blood Negative Urine Nitrite Negative Urine Bilirubin Negative Urine Urobilinogen 0.2 Ur Leukocyte Esterase Trace H Urine RBC 0-3 Urine WBC 3-5 Ur Epithelial Cells Few Amorphous Urates Few Urine Bacteria Few Active Medications Generic Name Dose Route Start Last Admin Trade Name Freq PRN Reason Stop Dose Admin Acetaminophen 650 mg 12/01/17 22:21 12/02/17 08:50 Tylenol - PO 650 mg Q6H PRN Administration FEVER Al Hydroxide/Mg Hydroxide 30 ml 11/28/17 15:12 Mylanta Oral Suspension - PO Q4H PRN DYSPEPSIA Aspirin 81 mg 11/28/17 22:00 12/02/17 09:33 Asa - PO 81 mg BID SASHA Administration Carvedilol 12.5 mg 11/28/17 22:00 12/02/17 09:33 Coreg - PO 12.5 mg BID SASHA Administration Ferrous Sulfate 325 mg 11/30/17 22:00 12/02/17 09:33 Feosol - PO 325 mg BID SASHA Administration Sodium Chloride 1,000 mls @ 75 mls/hr 12/02/17 12:15 Normal Saline - IV ASDIR SASHA Magnesium Hydroxide 30 ml 11/28/17 15:12 Milk Of Magnesia - PO PRN PRN CONSTIPATION Ondansetron HCl 4 mg 11/28/17 15:12 Zofran Injection IVPUSH Q6H PRN NAUSEA Oxycodone HCl 5 mg 12/02/17 01:02 Roxicodone - PO Q3H PRN PAIN LEVEL 1-5 Oxycodone HCl 10 mg 12/02/17 01:05 12/02/17 08:50 Roxicodone - PO 10 mg Q3H PRN Administration PAIN LEVEL 6-10 Pantoprazole Sodium 40 mg 11/29/17 10:00 12/02/17 09:34 Protonix - PO 40 mg DAILY SASHA Administration Senna/Docusate Sodium 1 tablet 11/28/17 22:00 12/02/17 09:34 Pericolace - PO 1 tablet BID SASHA Administration ASSESSMENT/PLAN: Patient is a 67 y/o female with a PMH significant for HTN, obesity, OA, s/p right TKR x 3 years, now s/p left TKR. *Left total knee replacement POD #4 -multiple calls placed to surgeon by staff and supervisors; advised surgeons are in [facility]; no response from emergency number; no covering surgeon -CT lower ext: Soft tissue swelling,air and joint effusion, no discrete collection or abscess noted. 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 Full code. Updated plan of care with daughter at [facility]. Visit type - Emergency Visit Emergency Visit: Yes ED Registration Date: 11/28/17 Care time: The patient presented to the Emergency Department on the above date and was hospitalized for further evaluation of their emergent condition. - New Patient This patient is new to me today: Yes Date on this admission: 12/02/17 - Critical Care Critical Care patient: No
[2017-12-02] MEDS ORDERED: PIPERACILLIN/TAZOB 3.375 GM 3.375 GM/50 ML BAG IVPB SCH (18:00)
[2017-12-03] MEDS: oxyCODONE HCL 5 MG TABLET PO PRN ×3 (06:28→14:04)
[2017-12-03] MEDS: ACETAMINOPHEN 325 MG TABLET (FP) PO PRN (06:28)
[2017-12-03 06:56] VITALS: BP 155/71; PULSE 88
[2017-12-03 07:53] VITALS: TEMP 99.9
[2017-12-03 08:16] LABS: ANION GAP 8 (8-16); BLOOD UREA NITROGEN 17 mg/dl (7-18); CALCIUM 8.1 mg/dl (8.4-10.2); CHLORIDE 96 mmol/L (98-107); CO2 27 mmol/L (22-28); CREATININE 1.1 mg/dl (0.6-1.3); GLUCOSE,RANDOM 96 mg/dl (74-106); POTASSIUM 3.5 mmol/L (3.5-5.1); SODIUM 131 mmol/L (136-145)
[2017-12-03 09:00] LABS: BASO % 0.5 % (0-2.0); EOS % 2.6 % (0-4.5); HEMATOCRIT 24.5 % (32.4-45.2); LYMPH % 11.2 % (8-40); MCH 26.7 pg (25.7-33.7); MCHC 32.8 g/dl (32.0-36.0); MEAN CELL VOLUME 81.5 fl (80-96); MEAN PLT VOLUME 8.6 fl (7.5-11.1); MONO % 14.6 % (3.8-10.2); NEUT % 71.1 % (42.8-82.8); PLATELET COUNT 258 K/MM3 (134-434); RBC 3.01 M/mm3 (3.60-5.2); RDW 14.7 % (11.6-15.6)
[2017-12-03] MEDS ORDERED: POTASSIUM CHLORIDE TABS 20 MEQ TABLET.ER (FP) PO ONE (09:08)
[2017-12-03] MEDS: PANTOPRAZOLE 40 MG TABLET (FP) PO SCH (09:20)
[2017-12-03] MEDS: CARVEDILOL 12.5 MG TABLET (FP) PO SCH (09:20)
[2017-12-03] MEDS: FERROUS SO4 325 MG TABLET (FP) PO SCH (09:21)
[2017-12-03] MEDS: SENNOSIDES/DOCUSATE COMBO (SENNA PLUS) TABLET (UD) PO SCH (09:21)
--- NOTE | 2017-12-03 10:05 | PN ---
Progress Note, Physician History of Present Illness: Awake, alert No complaints No knee pain Low grade temp noted No c/o fever/ chills WBC WNL - Current Medication List Current Medications: Active Medications Acetaminophen (Tylenol -) 650 mg PO Q6H PRN PRN Reason: FEVER Last Admin: 12/03/17 06:28 Dose: 650 mg Al Hydroxide/Mg Hydroxide (Mylanta Oral Suspension -) 30 ml PO Q4H PRN PRN Reason: DYSPEPSIA Carvedilol (Coreg -) 12.5 mg PO BID [facility] Last Admin: 12/03/17 09:20 Dose: 12.5 mg Ferrous Sulfate (Feosol -) 325 mg PO BID [facility] Last Admin: 12/03/17 09:21 Dose: 325 mg Sodium Chloride (Normal Saline -) 1,000 mls @ 75 mls/hr IV ASDIR [facility] Last Admin: 12/02/17 12:40 Dose: 75 mls/hr Magnesium Hydroxide (Milk Of Magnesia -) 30 ml PO PRN PRN PRN Reason: CONSTIPATION Ondansetron HCl (Zofran Injection) 4 mg IVPUSH Q6H PRN PRN Reason: NAUSEA Oxycodone HCl (Roxicodone -) 5 mg PO Q3H PRN PRN Reason: PAIN LEVEL 1-5 Oxycodone HCl (Roxicodone -) 10 mg PO Q3H PRN PRN Reason: PAIN LEVEL 6-10 Last Admin: 12/03/17 09:21 Dose: 10 mg Pantoprazole Sodium (Protonix -) 40 mg PO DAILY [facility] Last Admin: 12/03/17 09:20 Dose: 40 mg Senna/Docusate Sodium (Pericolace -) 1 tablet PO BID [facility] Last Admin: 12/03/17 09:21 Dose: 1 tablet - Objective Vital Signs: Vital Signs Temperature 99.9 F H 12/03/17 07:52 Pulse Rate 88 12/03/17 06:00 Respiratory Rate 20 12/03/17 06:00 Blood Pressure 155/71 12/03/17 06:00 O2 Sat by Pulse Oximetry (%) 97 12/03/17 08:10 Constitutional: Yes: No Distress, Obese Cardiovascular: Yes: Regular Rate and Rhythm, S1, S2 Respiratory: Yes: CTA Bilaterally Gastrointestinal: Yes: Normal Bowel Sounds, Soft, Abdomen, Obese. No: Tenderness Extremities: Yes: Other (L TKR wound healing well. No erythema/ drainage) Labs: CBC, BMP 12/03/17 07:10 12/03/17 07:10 Assessment/Plan POD #5 TKR Post op fever Observe off antibiotics Outpatient ortho followup
--- NOTE | 2017-12-03 10:46 | DS ---
Physical Exam: SUBJECTIVE: Patient seen and examined, ambulatory at bedside, denies any chest pain or shortness of breath, patient reports minimal pain to the left knee, patient denies any paresthesia to the extremity. OBJECTIVE:Patient is a 67 y/o female with a past medical history of OA, HTN, obesity. Patient is s/p left total knee replacement, Dr Perrin Post op day 5 Vital Signs Period Temp Pulse Resp BP Sys/Armstrong Pulse Ox Last 24 Hr 99.0 F-100.6 F 77-88 19-20 131-155/65-74 95-97 PHYSICAL EXAM GENERAL: The patient is awake, alert, and fully oriented, in no acute distress. HEAD: Normal with no signs of trauma. EYES: PERRL, extraocular movements intact, sclera anicteric, conjunctiva clear. ENT: Ears normal, nares patent, oropharynx clear without exudates, moist mucous membranes. NECK: Trachea midline, full range of motion, supple. LUNGS: Breath sounds equal, clear to auscultation bilaterally, no wheezes, no crackles, no accessory muscle use. HEART: Regular rate and rhythm, S1, S2 without murmur, rub or gallop. ABDOMEN: Soft, nontender, nondistended, normoactive bowel sounds, no guarding, no rebound, no hepatosplenomegaly, no masses. EXTREMITIES: 2+ pulses, warm, well-perfused, no edema. LEFT KNEE LOWER EXTREMITY: dressing, CDI, less than 3 second capillary refill, + 3 pedal pulse, TYESHA/SCD NEUROLOGICAL: Cranial nerves II through XII grossly intact. Normal speech, gait not observed. PSYCH: Normal mood, normal affect. SKIN: Warm, dry, normal turgor, no rashes or lesions noted. LABS Laboratory Results - last 24 hr 12/02/17 12/03/17 12/03/17 06:10 07:10 07:10 WBC 8.0 RBC 3.01 L Hgb 8.0 L D Hct 24.5 L MCV 81.5 MCH 26.7 MCHC 32.8 RDW 14.7 Plt Count 258 MPV 8.6 Neutrophils % 71.1 Lymphocytes % 11.2 Monocytes % 14.6 H Eosinophils % 2.6 Basophils % 0.5 Sodium 131 L Potassium 3.5 Chloride 96 L Carbon Dioxide 27 Anion Gap 8 BUN 17 D Creatinine 1.1 D Random Glucose 96 Calcium 8.1 L Urine RBC 0-3 Urine WBC 3-5 Ur Epithelial Cells Few Amorphous Urates Few Urine Bacteria Few Microbiology 12/02/17 06:10 Urine - Urine Clean Catch Urine Culture - Final NO GROWTH OBTAINED 12/02/17 00:00 Blood - Peripheral Venous Blood Culture - Preliminary NO GROWTH OBTAINED AFTER 24 HOURS, INCUBATION TO CONTINUE FOR 4 DAYS. 12/02/17 00:00 Blood - Peripheral Venous Blood Culture - Preliminary NO GROWTH OBTAINED AFTER 24 HOURS, INCUBATION TO CONTINUE FOR 4 DAYS. HOSPITAL COURSE: *Left total knee replacement POD #5 -discussed with Dr Perrin, evaluated patient at bedside, patient was cleared for discharge. - CT lower ext: Soft tissue swelling,air and joint effusion, no discrete collection or abscess noted. - blood and urine culture negative *Acute blood loss anemia likely secondary to surgery -transfused 2U overnight 11/30-->12/01 with modest response 7.5-->8.4>9.2/27.9 - started on Fe pills *Hypertension-BP stable -will continue carvedilol, and will hold off on HCTZ in view of RAMANDEEP * RAMANDEEP, Na 135 - started on IVF - will hold off HCTZ Date of Admission:11/28/17 Date of Discharge: 12/03/17 Minutes to complete discharge: 45 Discharge Summary Reason For Visit: UNILATERAL PRIMARY LEFT KNEE OA Current Active Problems Painful total knee replacement, right (Acute) Postoperative fever (Acute) Condition: Improved - Instructions Diet, Activity, Other Instructions: Post-op Instructions Call the office for a follow-up appointment this week Aspirin 81 twice a for 6 weeks. please start aspirin on Sunday, Pain medication was sent into your pharmacy. Apply Graduated Compression Stockings (TEDs) to both lower extremities- remove daily for hygiene ONLY Apply cold packs to affected area for 15 minutes every 2 hours. Physical Therapist will come to your home for the first 5 days. You will be set up with outpatient PT at your first post-operative visit. Patient may ambulate as tolerated-encourage self care (at least every 2-3 hours while awake) with walker or cane your Aquacel dressing was removed by Dr Perrin this morning, do not shower, sponge baths only. CONTACT THE OFFICE FOR ANY CHANGE IN YOUR CONDITION (for example-fever greater than 102 degrees,excessive bleeding from operative site, purulent drainage, severe swelling or pain) GO TO THE EMERGENCY ROOM IF THERE IS A MEDICAL EMERGENCY * If you have any questions, please do not hesitate to call the office Referrals: Bienvenido Perrin MD [Staff Physician] - 12/06/17 Disposition: [facility]/HOME HEALTH CARE - Home Medications Comprehensive Discharge Medication List: Ambulatory Orders Carvedilol [Coreg -] 12.5 mg PO BID 11/22/17 Hydrochlorothiazide [Hctz -] 25 mg PO DAILY 11/22/17 Oxycodone HCl/Acetaminophen [Oxycodon-Acetaminophen 7.5-325] 1 each PO Q6H PRN 11/22/17 This patient is new to me today: No Emergency Visit: No Critical Care patient: No - Discharge Referral Referred to [facility] No
--- NOTE | 2017-12-03 11:36 | PATH ---
Surgical Pathology Report Patient Name: LUCRETIA WILDER Med. Rec. #: [id number] /Age/Gender: 1950 (Age: 67) / F Account: [id number] Location: [facility] Taken: 11/28/2017 Received: 11/28/2017 Reported: 12/03/2017 Physicians: Eliel Perrin M.D. Specimen(s) Received LEFT KNEE BONES Clinical History Unilateral primary left knee osteoarthritis Final Diagnosis BONE AND SOFT TISSUE, LEFT KNEE, REPLACEMENT: DEGENERATIVE JOINT DISEASE. Electronically Signed Garfield Oliver M.D. Gross Description Received in formalin labeled "left knee bones," is a 14.0 x 13.5 x 2.5 cm aggregate of multiple portions of bone and soft tissue. The tibial plateau measures 8.8 x 6.0 x 1.7 cm. There are multiple areas of eburnation present, measuring up to 3.0 cm in greatest dimension. The remaining articular surfaces are shafer-yellow and focally granular. The underlying trabecular bone is yellow and hard. [place] [employer] sections are submitted in one cassette, following decalcification. 11/29/2017 [facility]11/29/2017
== END 2017-12-03 13:30 | disposition home health service (06) | DRG 470 ==
LOC: FM/S 09:39
PROVIDERS: ADMIT Orthopaedic Surgery Orthopaedic Surgery of the Spine; ATTEND Orthopaedic Surgery Orthopaedic Surgery of the Spine
PROC: 0SRD0J9 Replacement of Left Knee Joint with Synthetic Substitute, Cemented, Open Approach (ICD-10-PCS; principal; 2017-11-28 12:19)
PROC: 30233N1 Transfusion of Nonautologous Red Blood Cells into Peripheral Vein, Percutaneous Approach (ICD-10-PCS; 2017-11-30)
DX: M17.12 Unilateral primary osteoarthritis, left knee (principal); D62 Acute posthemorrhagic anemia; N17.9 Acute kidney failure, unspecified; I10 Essential (primary) hypertension; R50.82 Postprocedural fever; E66.9 Obesity, unspecified; Z68.38 Body mass index [BMI] 38.0-38.9, adult; D50.9 Iron deficiency anemia, unspecified
CPT/HCPCS: 36415; 36430; 71045-TC-FY; 73560-TC-LT-FY; 73700-TC-RT; 80048; 80053; 81003; 81015; 82728; 83540; 83550; 83605; 83735; 85025; 85027; 85044; 86850; 86900; 86901; 86922; 87040; 87086; 88304-TC; 88311-TC; 94760; 97116-GP; 97162-GP; J7030; P9038; P9058

== ENCOUNTER 2017-12-08 16:42 | Emergency (ER) | payer OTHER, BC ==
[2017-12-08 16:50] VITALS: BP 156/91; PULSE 76; TEMP 99.1; BMI 38.7
--- NOTE | 2017-12-08 17:25 | PDOC ---
History of Present Illness <Aakash Sanchez - Last Filed: 12/08/17 18:30> <Arabella Raymond I - Last Filed: 12/08/17 19:38> - General History Source: Patient Exam Limitations: No Limitations - History of Present Illness Initial Comments: 12/08/17 19:06 The patient is a 67 year old female with past medical history of OA, HTN, iron deficiency anemia, obesity presents to the emergency department with left wound drainage w/ swelling. The patient is 10 days s/p left total knee replacement which was complicated by anemia, later requiring 2 pint blood transfusion, with associated symptoms of low grade fever and discharge and was started on augmentin by her surgeon for which she has bene complaint with. The patient was discharged on December 03 w/ home PT. The patient reports noticing an increase in bloody discharge from the wound, with progressively radiating erythema and mild lower leg warmth. Patient was taken of daily aspirin intake to every other day by Dr. Perrin due to increase in wound discharge. Denies chest pain, SOB, abd pain, chills, nausea, vomiting. Denies dysuria, hematuria. Frequency or urgency to urinate. Surgical History: left total knee replacement (11/28/2017). Social History: None reported. <Katherine Ortiz - Last Filed: 12/08/17 22:11> - General Chief Complaint: Wound Stated Complaint: surgical wound bleeding, redness Time Seen by Provider: 12/08/17 16:51 Past History - Past Medical History Anemia: Yes (ON IRON) Asthma: No Cancer: No Cardiac Disorders: Yes (FUNCTIONAL HRT MUMUR) CVA: No COPD: No CHF: No Dementia: No Diabetes: No GI Disorders: No Disorders: No HTN: Yes Hypercholesterolemia: Yes Liver Disease: No Seizures: No Thyroid Disease: No - Surgical History Abdominal Surgery: Yes Appendectomy: Yes (OPEN- ) Cardiac Surgery: No Cholecystectomy: No Lung Surgery: No Neurologic Surgery: No Orthopedic Surgery: Yes (RIGHT KNEE ARTHROSCOPY, RIGHT KNEE REPLACEMENT) - Suicide/Smoking/Psychosocial Hx Smoking History: Unknown if ever smoked Have you smoked in the past 12 months: No Hx Alcohol Use: No Drug/Substance Use Hx: No Substance Use Type: None Hx Substance Use Treatment: No <Akaash Sanchez - Last Filed: 12/08/17 18:30> <Arabella Raymond I - Last Filed: 12/08/17 19:38> <Katherine Ortiz - Last Filed: 12/08/17 22:11> - Past Medical History Allergies/Adverse Reactions: Allergies Allergy/AdvReac Type Severity Reaction Status Date / Time No Known Allergies Allergy Verified 12/08/17 16:43 Home Medications: Ambulatory Orders Carvedilol [Coreg -] 12.5 mg PO BID 11/22/17 Hydrochlorothiazide [Hctz -] 25 mg PO DAILY 11/22/17 Acetaminophen [Tylenol .Regular Strength -] 650 mg PO Q6H PRN tablet 12/03/17 Aspirin [ASA -] 81 mg PO BID #60 tab.chew 12/03/17 Ferrous Sulfate [Feosol] 325 mg PO BID #60 ud 12/03/17 Mag Hydrox/Al Hydrox/Simeth [Mylanta Oral Suspension -] 30 ml PO Q4H PRN cup Oxycodone HCl/Acetaminophen [Oxycodon-Acetaminophen 7.5-325] 1 each PO Q6H PRN # 28 tablet MDD 4 12/03/17 Pantoprazole Sodium [Protonix -] 40 mg PO DAILY #30 tablet.ec 12/03/17 Sennosides/Docusate Sodium [Pericolace -] 1 tablet PO BID #60 tablet 12/03/17 Review of Systems - Review of Systems Able to Perform ROS?: Yes Comments:: 12/08/17 19:07 Constitutional - Pt denies Fever, Chills, weakness, HEENT: denies vision changes, sore throat Respiratory: Denies cough, sob, hemoptysis Cardiac: denies chest pain, palpitations, lightheadedness, leg swelling Abd/GI: denies abd pain, nausea, vomiting, blood per rectum, melena, diarrhea : denies dysuria, frequency, discharge Musculoskeletal: (+) Left knee wound drainage. (+) erythema and swelling. denies back pain. skin - denies bruising, erythema, rash neurological: denies headache, numbness, focal weakness, tingling, ataxia, weakness hematologic: denies anemia, easy bruising, easy bleeding <Katherine Ortiz - Last Filed: 12/08/17 22:11> *Physical Exam - Vital Signs Last Vital Signs Temp Pulse Resp BP Pulse Ox 99.1 F 76 19 156/91 98 12/08/17 16:43 12/08/17 16:43 12/08/17 16:43 12/08/17 16:43 12/08/17 16:43 <Aakash Sanchez - Last Filed: 12/08/17 18:30> - Vital Signs Last Vital Signs Temp Pulse Resp BP Pulse Ox 99.1 F 76 19 156/91 98 12/08/17 16:43 12/08/17 16:43 12/08/17 16:43 12/08/17 16:43 12/08/17 16:43 <Arabella Raymond I - Last Filed: 12/08/17 19:38> - Vital Signs Last Vital Signs Temp Pulse Resp BP Pulse Ox 99.1 F 76 19 156/91 98 12/08/17 16:43 12/08/17 16:43 12/08/17 16:43 12/08/17 16:43 12/08/17 16:43 - Physical Exam Comments: 12/08/17 19:07 GENERAL: The patient is awake, alert, and fully oriented, Nontoxic - in no acute distress, obese HEAD: Normocephalic, atraumatic. EYES: extraocular movements intact, sclera anicteric, conjunctiva clear. ENT: Normal voice, Moist mucous membranes. NECK: Normal range of motion, supple LUNGS: Breath sounds equal, clear to auscultation bilaterally. No wheezes, no rhonchi, no rales. HEART: systpolic murmer grade 4 loudest at R sternal border ABDOMEN: Soft, nontender, normoactive bowel sounds. No guarding, no rebound. EXTREMITIES: LLE exam: midline incision with suture present, mild edema, no erythema/induration/fluctuance noted at wound, slight serousangounous oozing, distan bear, erythema/slight warmth. neg homans sign, +1pitting edema NEUROLOGICAL: No facial assymetry, Normal speech, moving all 4 extremities spontaneously and symmetrically PSYCH: Normal mood, normal affect. SKIN: Warm, Dry, normal turgor, <Katherine Ortiz - Last Filed: 12/08/17 22:11> ED Treatment Course - LABORATORY CBC & Chemistry Diagram: 12/08/17 17:30 12/08/17 17:30 <Aakash Sanchez - Last Filed: 12/08/17 18:30> - LABORATORY CBC & Chemistry Diagram: 12/08/17 17:30 12/08/17 17:30 - ADDITIONAL ORDERS Additional order review: Laboratory Results 12/08/17 17:30 Sodium 133 L Potassium 4.1 Chloride 97 L Carbon Dioxide 31 H Anion Gap 5 L BUN 14 Creatinine 1.0 Creat Clearance w eGFR 55.14 Random Glucose 107 H Calcium 9.0 Total Bilirubin 0.6 D AST 22 ALT 17 Alkaline Phosphatase 100 H Total Protein 6.5 Albumin 3.0 L 12/08/17 17:30 RBC 3.22 L MCV 81.6 MCHC 34.3 RDW 15.1 MPV 7.4 L Neutrophils % 71.2 Lymphocytes % 15.0 Monocytes % 10.7 H Eosinophils % 2.9 Basophils % 0.2 <Arabella Raymond I - Last Filed: 12/08/17 19:38> - LABORATORY CBC & Chemistry Diagram: 12/08/17 17:30 12/08/17 17:30 - ADDITIONAL ORDERS Additional order review: Laboratory Results 12/08/17 17:30 Sodium 133 L Potassium 4.1 Chloride 97 L Carbon Dioxide 31 H Anion Gap 5 L BUN 14 Creatinine 1.0 Creat Clearance w eGFR 55.14 Random Glucose 107 H Calcium 9.0 Total Bilirubin 0.6 D AST 22 ALT 17 Alkaline Phosphatase 100 H Total Protein 6.5 Albumin 3.0 L 12/08/17 17:30 RBC 3.22 L MCV 81.6 MCHC 34.3 RDW 15.1 MPV 7.4 L Neutrophils % 71.2 Lymphocytes % 15.0 Monocytes % 10.7 H Eosinophils % 2.9 Basophils % 0.2 <Katherine Ortiz - Last Filed: 12/08/17 22:11> Medical Decision Making - Medical Decision Making 12/08/17 17:27 67y F hx of htn, presents with increasing discharge from her left knee not foul smeling or purulent, more bloody, no sigifincant increase in pain of her legs or swelling, pt does notice some mild redness in the distal region of her leg. no fever/chills. on exam pt has a large midline incision in her L leg, some mild wound dehicsence , but no tenderness, erythema/induration, warmth noted at wound site. pt has mild erythema /edema in the distal bear that is nontender, non indurated. mild wound dehisence no signs of acute infection at wound distally there is some erthema -0 ?celluitis vs collection of dependent blood from her sugery will ck CB to r/o elevated WBC will dw her surgeon after labs are back A portion of this note was documented by scribe services under my direction. I have reviewed the details of the note, within reason, and agree with the documentation with the following case summary and management plan written by me 12/08/17 18:30 Patient's blood work was reviewed there is no signs of leukocytosis I will give Dr. Dunbar. <Aakash Sanchez - Last Filed: 12/08/17 18:30> - Medical Decision Making Dr. Perrin's office was called at 6:[address] Perrin's office was called for the second time at 7:[address] Perrin's office was called for the third time at 8:10 PM. The answering service doesn't know who the on-call doctor is. They reported that all three of the calls was forwarded to NP. Green, who isn't on-call. 12/08/17 22:06 <Katherine Ortiz - Last Filed: 12/08/17 22:11> *DC/Admit/Observation/Transfer <Aakash Sanchez - Last Filed: 12/08/17 18:30> <Arabella Raymond I - Last Filed: 12/08/17 19:38> - Attestations Scribe Attestion: 12/08/17 19:07 Documentation prepared by Katherine Ortiz, acting as medical director for Aakash Sanchez MD. <Katherine Ortiz - Last Filed: 12/08/17 22:11> Diagnosis at time of Disposition: Painful total knee replacement, left Qualifiers: Encounter type: initial encounter Qualified Code(s): T84.84XA - Pain due to internal orthopedic prosthetic devices, implants and grafts, initial encounter - Discharge Dispostion Disposition: HOME Condition at time of disposition: Stable - Patient Instructions Additional Instructions: Continue all your medications as prescribed. Continue your antibiotics. Call your surgeon in the morning it is my understanding he will be back in the country tomorrow and let him know you were here we will give you a copy of your workup and see if your surgeon wants to add any additional antibiotics to what your on. Take a probiotic with your antibiotics. Continue your pain medicine as prescribed. Return to the emergency department immediately with ANY new, persistent or worsening symptoms. Continue any medications as previously prescribed by your physician. You should follow up with your primary doctor as soon as possible regarding today's emergency department visit. . Please make sure your doctor reviews the results of your emergency evaluation. Thank you for coming to the Emergency Department today for your care. It was a pleasure to see you today. Please note that your evaluation is INCOMPLETE until you follow-up with your doctor.
[2017-12-08 18:12] LABS: BASO % 0.2 % (0-2.0); EOS % 2.9 % (0-4.5); HEMATOCRIT 26.2 % (32.4-45.2); MCHC 34.3 g/dl (32.0-36.0); MEAN CELL VOLUME 81.6 fl (80-96); MEAN PLT VOLUME 7.4 fl (7.5-11.1); MONO % 10.7 % (3.8-10.2); NEUT % 71.2 % (42.8-82.8); PLATELET COUNT 461 K/MM3 (134-434); RBC 3.22 M/mm3 (3.60-5.2); RDW 15.1 % (11.6-15.6); WHITE BLOOD COUNT 9.1 K/mm3 (4.0-10.8)
[2017-12-08 18:15] LABS: ALK PHOS 100 U/L (32-92); ANION GAP 5 (8-16); BLOOD UREA NITROGEN 14 mg/dl (7-18); CHLORIDE 97 mmol/L (98-107); CO2 31 mmol/L (22-28); GLUCOSE,RANDOM 107 mg/dl (74-106); POTASSIUM 4.1 mmol/L (3.5-5.1); SGOT/AST 22 U/L (10-42); SGPT/ALT 17 U/L (10-40); SODIUM 133 mmol/L (136-145); TOT PROT 6.5 g/dl (6.4-8.3)
[2017-12-08 18:24] LABS: BILIRUBIN,TOTAL 0.6 mg/dl (0.2-1.0)
--- NOTE | 2017-12-08 19:45 | PDOC ---
*Physical Exam - Vital Signs Last Vital Signs Temp Pulse Resp BP Pulse Ox 99.1 F 76 19 156/91 98 12/08/17 16:43 12/08/17 16:43 12/08/17 16:43 12/08/17 16:43 12/08/17 16:43 ED Treatment Course - LABORATORY CBC & Chemistry Diagram: 12/08/17 17:30 12/08/17 17:30 - ADDITIONAL ORDERS Additional order review: Laboratory Results 12/08/17 17:30 Sodium 133 L Potassium 4.1 Chloride 97 L Carbon Dioxide 31 H Anion Gap 5 L BUN 14 Creatinine 1.0 Creat Clearance w eGFR 55.14 Random Glucose 107 H Calcium 9.0 Total Bilirubin 0.6 D AST 22 ALT 17 Alkaline Phosphatase 100 H Total Protein 6.5 Albumin 3.0 L 12/08/17 17:30 RBC 3.22 L MCV 81.6 MCHC 34.3 RDW 15.1 MPV 7.4 L Neutrophils % 71.2 Lymphocytes % 15.0 Monocytes % 10.7 H Eosinophils % 2.9 Basophils % 0.2 Progress Note - Progress Note Progress Note: This is a 67-year-old female comes in with postop discharge and some increased erythema of the leg is status post knee surgery. Care of this patient was transferred to me from Dr. Sanchez and 1900 hrs. Patient had a workup including normal white count normal vitals and serosanguineous discharge is coming from the knee. There is some mild erythema distally with slight increase in warmth however it is uncertain if this is postop or early infection. 3 calls of been placed to the surgeon and I am waiting for the surgeon to call me back to give me some guidance as to whether or not the patient's antibiotic should be switched and with the surgeon wants me to do. I gave the patient the option of going home as her blood work was all normal and having her contact the surgeon for additional guidance however patient does not want to leave until I had a hold of the surgeon so I will continue to try to reach the surgeon. Continue to try to reach the surgeon and even she discovered that the surgeon is out of the country and unreachable. The answering service was not given a covering person for the surgeon. It was determined that the surgeon will be back in the country tomorrow so the family opted to go ahead and go home continue her medication and follow-up with the surgeon work *DC/Admit/Observation/Transfer Diagnosis at time of Disposition: Painful total knee replacement, left Qualifiers: Encounter type: initial encounter Qualified Code(s): T84.84XA - Pain due to internal orthopedic prosthetic devices, implants and grafts, initial encounter - Discharge Dispostion Disposition: HOME Condition at time of disposition: Stable Admit: No - Referrals - Patient Instructions Additional Instructions: Continue all your medications as prescribed. Continue your antibiotics. Call your surgeon in the morning it is my understanding he will be back in the country tomorrow and let him know you were here we will give you a copy of your workup and see if your surgeon wants to add any additional antibiotics to what your on. Take a probiotic with your antibiotics. Continue your pain medicine as prescribed. Return to the emergency department immediately with ANY new, persistent or worsening symptoms. Continue any medications as previously prescribed by your physician. You should follow up with your primary doctor as soon as possible regarding today's emergency department visit. . Please make sure your doctor reviews the results of your emergency evaluation. Thank you for coming to the Emergency Department today for your care. It was a pleasure to see you today. Please note that your evaluation is INCOMPLETE until you follow-up with your doctor. - Post Discharge Activity
== END 2017-12-08 21:04 | disposition home or self-care (01) ==
LOC: FER 16:42
DX: T84.84XA Pain due to internal orthopedic prosthetic devices, implants and grafts, initial encounter (principal); T81.32XA Disruption of internal operation (surgical) wound, not elsewhere classified, initial encounter; Y83.9 Surgical procedure, unspecified as the cause of abnormal reaction of the patient, or of later complication, without mention of misadventure at the time of the procedure; Y92.9 Unspecified place or not applicable; I10 Essential (primary) hypertension; M19.90 Unspecified osteoarthritis, unspecified site; D50.9 Iron deficiency anemia, unspecified; E78.00 Pure hypercholesterolemia, unspecified; E66.9 Obesity, unspecified; Z68.38 Body mass index [BMI] 38.0-38.9, adult; Z96.652 Presence of left artificial knee joint; Z79.82 Long term (current) use of aspirin
CPT/HCPCS: 36415; 80053; 85025; 99282-25